=== PATIENT | female | born 1960 | race African-American/Black ===

== ENCOUNTER 2016-11-25 20:54 | Emergency (ER) | payer OTHER ==
[~2016-11-25] VITALS: Ht 172.7 cm; Wt 71.3 kg
[2016-11-25 20:57] VITALS: BP 144/85; PULSE 106; RESP 18; TEMP 99.1; O2SAT 98
[2016-11-25] MEDS ORDERED: VICT18IN SQ (21:08)
[2016-11-25] MEDS ORDERED: AMLO5TAB2 PO (21:08)
[2016-11-25] MEDS ORDERED: METF500T PO (21:08)
[2016-11-25] MEDS ORDERED: MULTTAB67 PO (21:09)
[2016-11-25] MEDS ORDERED: OMEP20TA PO (21:10)
[2016-11-25] MEDS ORDERED: ALBUAER3 INH (21:18)
--- NOTE | 2016-11-25 21:41 | PD ---
HPI Chief Complaint: Pain: Acute or Chronic Time Seen by Provider: 21:29 Travel History International Travel<30 days: No Contact w/Intl Traveler<30days: No Traveled to known affect area: No History of Present Illness HPI The patient is a 56-year-old female who complains of right lower leg anterior pain and left ankle pain getting at 4:30 PM today. Area the pain started suddenly. She denies any injury. She had a similar episode of pain slightly over a year ago when her gave her massage and the pain went away after about 30 minutes. The patient does have diabetes, gastroesophageal reflux, asthma and hypertension. She is from [place] and has no local physician. She denies any fever. She finds it extremely painful to walk. She is attending a conference here in [facility]. The patient is a walker and walks to half miles daily. [facility] Past Medical History Asthma: Yes Cardiovascular Problems: Yes (HTN) Diabetes: Yes Patient Takes Glucophage: No Diminished Hearing: No GERD: Yes Hypertension: Yes Respiratory: Yes (ASTHMA) Immunizations Current: Yes Tetanus Vaccination: Unknown Influenza Vaccination: Yes ?: Not : 3 Para: 2 Miscarriage: 1 Tubal Ligation: Yes Social History Alcohol Use: Yes (occ wine) Tobacco Use: No Substance Use: No Allergies-Medications (Allergen,Severity, Reaction): Coded Allergies: No Known Allergies (Unverified , 11/25/16) Reported Meds & Prescriptions Reported Meds & Active Scripts Active Ibuprofen 600 Mg Tab 600 Mg PO TID Reported Proair Hfa 8.5 GM Inh (Albuterol Sulfate) 90 Mcg/Act Aer 2 Puff INH Q4-6H PRN 108 mcg/actuation Omeprazole 20 Mg Tab 20 Mg PO DAILY Multiple Vitamin 1 Tab 1 Tab PO DAILY Amlodipine (Amlodipine Besylate) 5 Mg Tab 5 Mg PO DAILY Metformin (Metformin HCl) 500 Mg Tab 500 Mg PO BIDPC With meals Victoza Inj (Liraglutide Inj) 18 Mg/3 Ml Pen 1.2 Mg SQ DAILY Review of Systems Except as stated in HPI: all other systems reviewed are Neg Physical Exam Narrative GENERAL: Well-nourished, well-developed patient in slight apparent distress with her right lower leg and left ankle pain. Her vital signs show blood pressure 144/85 with a heart rate of 106 but otherwise normal. SKIN: Warm and dry. No erythema is noted. HEAD: Normocephalic. EYES: No scleral icterus. No injection or drainage. NECK: Supple, trachea midline. No JVD or lymphadenopathy. CARDIOVASCULAR: Regular rate and rhythm without murmurs, gallops, or rubs. RESPIRATORY: Breath sounds equal bilaterally. No accessory muscle use. GASTROINTESTINAL: Abdomen soft, non-tender, nondistended. MUSCULOSKELETAL: No cyanosis, or edema. No cord is palpated in the calf and there is no calf vein tenderness present over either leg. No swelling is noted over either leg. There is tenderness over the left ankle and any movement of the ankle reproduces her pain. BACK: Nontender without obvious deformity. No CVA tenderness. Data Data Last Documented VS Vital Signs Date Time Temp Pulse Resp B/P Pulse Ox O2 Delivery O2 Flow Rate FiO2 11/25/16 23:35 76 16 162/72 98 Room Air 11/25/16 20:57 99.1 Orders Ketorolac Inj (Toradol Inj) (11/25/16 21:45) Ankle, Complete (Thw7yks) (11/25/16 22:48) Tibia/Fibula (Ap/Lat) (11/25/16 22:48) MDM Medical Decision Making Medical Screen Exam Complete: Yes Emergency Medical Condition: Yes Medical Record Reviewed: Yes Interpretation(s) X-rays of the right tibia and left foot are normal. Differential Diagnosis DVThighly unlikely, muscle strain, diabetic neuropathy, leg/ankle pain etiology undetermined, cazares splints-tibial stress syndrome Narrative Course It is now 1037 and the patient has had the Toradol shot about 30 minutes ago. She is already experiencing some relief on the left ankle pain. It is felt that this is muscular on the right leg, the tenderness is lateral to that tibia and not medial as are most cazares splints. She also has joint inflammation on the left ankle. She does have a history of some joint problems with the right shoulder. Impression: Muscle strain right lower leg, arthrosis left ankle. Plan: The patient should rest from her walking routine and take Motrin regularly , 600 mg 3 times daily. Diagnosis Primary Impression: Muscle strain of right lower leg Additional Impression: Pain, joint, ankle, left Additional Instructions: This appears to be muscular and not as the usual cazares splints or tibial stress syndrome. Massage will work on the right leg and take the ibuprofen 1 tablet 3 times daily so that she developed high anti-inflammatory levels. The ibuprofen will also help the left ankle. Massage will not help the left ankle since his is joint inflammation. Follow-up with your primary care physician next week in [place]. Med/Other Pt SpecificInfo: Prescription(s) given Scripts Ibuprofen 600 Mg [id number] Mg PO TID #45 TAB Ref 0 Prov:Trevon Odonnell MD 11/25/16 Disposition: 01 DISCHARGE HOME Condition: Stable Trevon Odonnell MD Nov 25, 2016 21:41
[2016-11-25] MEDS ORDERED: KETOROLAC TROMETHAMINE 60 MG/2 ML (IM) VIAL IM ONE (21:45)
[2016-11-25] MEDS ORDERED: IBUP-232 PO (22:48)
--- NOTE | 2016-11-25 23:22 | RADHPO ---
EXAM DATE/TIME: 11/25/2016 23:04 [facility] COMPARISON: No previous studies available for comparison. INDICATIONS : Right lower leg pain starting today with no known injury MEDICAL HISTORY : None. SURGICAL HISTORY : None. ENCOUNTER: Initial ACUITY: 1 day PAIN SCORE: 10/10 LOCATION: Right entire lower leg FINDINGS: Two view examination of the right tibia demonstrates no evidence of fracture or dislocation. Bony mi neralization is normal. The soft tissue structures are intact. CONCLUSION: Normal examination for a patient of this age. Eduardo Casper MD on November 25, 2016 at 23:20 Board Certified Radiologist. This report was verified electronically.
--- NOTE | 2016-11-25 23:22 | RADHPO ---
EXAM DATE/TIME: 11/25/2016 23:00 [facility] COMPARISON: No previous studies available for comparison. INDICATIONS : Left ankle pain starting today with no known injury MEDICAL HISTORY : None. SURGICAL HISTORY : None. ENCOUNTER: Initial ACUITY: 1 day PAIN SCORE: 10/10 LOCATION: Left entire ankle FINDINGS: Three view exam was performed of the left ankle. The bony structures are in normal alignment. No ev idence of fracture, dislocation, or soft tissue swelling. The ankle mortise is intact. No radiopaqu e foreign bodies are seen. Bony mineralization is normal. CONCLUSION: Normal examination for a patient of this age. Eduardo Casper MD on November 25, 2016 at 23:20 Board Certified Radiologist. This report was verified electronically.
[2016-11-25 23:35] VITALS: BP 162/72; PULSE 76; RESP 16; O2SAT 98
== END 2016-11-26 00:06 | disposition home or self-care (01) ==
LOC: PHED 20:54
DX: S86.911A Strain of unspecified muscle(s) and tendon(s) at lower leg level, right leg, initial encounter (principal); M19.072 Primary osteoarthritis, left ankle and foot; K21.9 Gastro-esophageal reflux disease without esophagitis; I10 Essential (primary) hypertension; J45.909 Unspecified asthma, uncomplicated; E11.9 Type 2 diabetes mellitus without complications; Z79.4 Long term (current) use of insulin; Y93.01 Activity, walking, marching and hiking; X58.XXXA Exposure to other specified factors, initial encounter; Y93.9 Activity, unspecified; Y92.9 Unspecified place or not applicable; Y99.9 Unspecified external cause status
CPT/HCPCS: 73590; 73610; 96372; 99283; J1885